=== PATIENT | female | born 1940 | race Caucasian/White ===

== ENCOUNTER 2017-10-07 14:01 | Emergency (ER) | payer MEDICARE ==
[2017-10-07] MEDS ORDERED: TORAdol 30 mg Injection IV ONE (14:36)
[2017-10-07] MEDS ORDERED: MORPHINE SULFATE 4 MG INJ IV ONE (14:36)
--- NOTE | 2017-10-07 14:36 | ERPHSYRPT ---
- History of Present Illness Time Seen by Provider: 10/07/17 14:26 Source: patient, family Exam Limitations: no limitations Physician History: The patient is a 77-year-old female with family complaining of a flareup of her chronic low back pain that began 4 days ago. She has flareups from time to time. She has been lifting a few items and taking care of her disabled . Her pain this morning has been nearly unbearable. She has not slept for 2 nights. The pain is on both sides in her low back radiating down her buttocks. She denies nausea or vomiting. Her past medical history is significant for chronic back pain, hypertension. Timing/Duration: day(s) (4), gradual onset, worse Method of Injury: bending, lifting Quality: sharp, aching Back Pain Location: lumbar spine Back Pain Radiation: buttocks Severity of Pain-Max: severe Severity of Pain-Current: severe Modifying Factors: Improves With: pain medication Associated Symptoms: lower back pain, No urinary incontinence, No loss of bowel control, No nausea, No vomiting Previous symptoms: same symptoms as today Allergies/Adverse Reactions: No Known Drug Allergies Allergy (Verified 10/07/17 14:28) Home Medications: Lisinopril/Hydrochlorothiazide [Lisinopril-Hctz 10-12.5 mg Tab] 1 each PO DAILY 07/09/17 [History] Naproxen 500 mg [Naprosyn 500 MG] 500 mg PO DAILY PRN 07/09/17 [History] Nebivolol HCl [Bystolic] 10 mg PO DAILY 07/09/17 [History] Potassium Chloride 20 Meq [Klor-Con 20 MEQ] 20 meq PO DAILY 07/09/17 [History] - Review of Systems Constitutional: No Fever, No Chills Eyes: No Symptoms Ears, Nose, & Throat: No Symptoms Respiratory: No Cough, No Dyspnea Cardiac: No Chest Pain, No Edema, No Syncope Abdominal/Gastrointestinal: No Abdominal Pain, No Nausea, No Vomiting, No Diarrhea Genitourinary Symptoms: No Dysuria Musculoskeletal: Back Pain Skin: No Rash Neurological: No Dizziness, No Focal Weakness, No Sensory Changes Psychological: No Symptoms Endocrine: No Symptoms Hematologic/Lymphatic: No Symptoms Immunological/Allergic: No Symptoms All Other Systems: Reviewed and Negative - Past Medical History Pertinent Past Medical History: Yes Neurological History: No Pertinent History ENT History: Other Cardiac History: Hypertension Respiratory History: No Pertinent History Endocrine Medical History: No Pertinent History Musculoskeletal History: Osteoarthritis, Other GI Medical History: No Pertinent History History: No Pertinent History Psycho-Social History: No Pertinent History Female Reproductive Disorders: No Pertinent History Other Medical History: fractured tailbone, steroid shot for a buldging disc in the L-spine "years ago". degenerative spondlyosis. R knee scope. blind in left eye - Past Surgical History Past Surgical History: Yes Neuro Surgical History: No Pertinent History Cardiac: No Pertinent History Respiratory: No Pertinent History Gastrointestinal: No Pertinent History Genitourinary: No Pertinent History Musculoskeletal: Orthopedic Surgery, Other Female Surgical History: No Pertinent History Other Surgical History: knee scope, lipomas removed - Social History Drug Use: none - Nursing Vital Signs Nursing Vital Signs: Initial Vital Signs Temperature 98 F 10/07/17 14:12 Pulse Rate 60 10/07/17 14:12 Respiratory Rate 20 10/07/17 14:12 Blood Pressure 170/72 10/07/17 14:12 O2 Sat by Pulse Oximetry 97 10/07/17 14:12 Pain Scale Pain Intensity [Back] 1 Pain Intensity 0 - Physical Exam General Appearance: moderate distress Eye Exam: PERRL/EOMI, eyes nml inspection Ears, Nose, Throat Exam: normal ENT inspection Neck Exam: normal inspection, non-tender, supple, full range of motion, No meningismus, No midline tenderness Respiratory Exam: normal breath sounds, lungs clear, No respiratory distress Cardiovascular Exam: regular rate/rhythm Gastrointestinal Exam: soft, No tenderness, No mass Pelvic Exam: not done Rectal Exam: not done Back Exam: decreased range of motion, muscle spasm (tenderness and spasm in bilateral inferior paraspinous muscles.), No vertebral tenderness Extremity Exam: normal inspection, normal range of motion, No calf tenderness, No pedal edema Neurologic Exam: alert, oriented x 3, cooperative, [employer] dean II-XII nml as tested, normal mood/affect, nml station & gait, sensation nml, No motor deficits Skin Exam: normal color, warm, dry, No rash SpO2 Interpretation: normal SpO2: 97 Oxygen Delivery: Room Air - Radiology Exams L-Spine X-ray Interpretation: Teleradiologist Report, Negative (per DR Swanson, no acute) Ordered Tests: Active Orders 24 hr Category Date Time Status Cold Application STAT Care 10/07/17 14:36 Active IV Insertion STAT Care 10/07/17 14:36 Active LUMBAR LIMITED (2 OR 3 VIEWS) Stat Exams 10/07/17 14:36 Completed Medication Summary Generic Name Dose Route Start Last Admin Trade Name Suyapa PRN Reason Stop Dose Admin Ondansetron HCl 4 mg 10/07/17 17:06 Zofran Odt 4 Mg PO 10/07/17 17:07 STAT ONE Discontinued Medications Generic Name Dose Route Start Last Admin Trade Name Suyapa PRN Reason Stop Dose Admin Dexamethasone Sodium Phosphate 10 mg 10/07/17 14:38 10/07/17 15:40 Decadron 10mg Inj. IV 10/07/17 14:39 10 mg STAT ONE Administration Dexamethasone Sodium Phosphate Confirm 10/07/17 15:39 Decadron 10mg Inj. Administered 10/07/17 15:40 Dose 10 mg .ROUTE .STK-MED ONE Ketorolac Tromethamine 15 mg 10/07/17 14:36 10/07/17 15:40 Toradol 30 Mg Injection IV 10/07/17 14:37 15 mg STAT ONE Administration Ketorolac Tromethamine Confirm 10/07/17 15:39 Toradol 30 Mg Injection Administered 10/07/17 15:40 Dose 30 mg .ROUTE .STK-MED ONE Morphine Sulfate 4 mg 10/07/17 14:36 10/07/17 15:40 Morphine Sulfate 4 Mg Inj IV 10/07/17 14:37 4 mg STAT ONE Administration Morphine Sulfate Confirm 10/07/17 15:39 Morphine Sulfate 4 Mg Inj Administered 10/07/17 15:40 Dose 4 mg .ROUTE .STK-MED ONE - Progress Progress: improved Counseled pt/family regarding: rad results - Departure Time of Disposition: 17:08 Departure Disposition: Home Clinical Impression: Back spasm Condition: Stable Critical Care Time: No Referrals: FRANCIS VINES [Primary Care Provider] - Additional Instructions: You have back pain and back muscle spasms. You were given morphine, Decadron, and Toradol in the ER. You are also given Zofran orally. Take Flexeril 5 mg every 8 hours as needed. Follow-up in one to 2 days. Prescriptions: Ondansetron ODT 4 MG [Zofran Odt 4 mg] 1 tab PO Q6H PRN PRN #10 tab.rapdis PRN Reason: Nausea/Vomiting Cyclobenzaprine HCl [Flexeril] 5 mg PO Q8H PRN PRN #10 tablet PRN Reason: Muscle Spasms
[2017-10-07] MEDS ORDERED: DECADRON 10MG INJ. IV ONE (14:38)
--- NOTE | 2017-10-07 15:28 | XRAY ---
Exam: 3 view lumbar spine series from 10/07/2017. Comparison: Five-view lumbar spine series from 06/11/2017. Indication: Status post injury after carrying groceries per patient, complains of lumbosacral pain. Findings: AP, lateral, and a coned-down lateral film of the lumbosacral junction were obtained. There are 5 [id number] lumbar-type vertebra. I note a slight rotary component of L3 toward the right on the AP film, as well as minimal right lateral subluxation of L3 with respect to L4. This is unchanged. In addition, there is moderate degenerative disc disease at L3-L4 manifested by disc space narrowing, vacuum disc phenomena, and mild anterior lateral vertebral endplate spurring. This is most pronounced on the left side. These findings are unchanged from 06/11/2017. Minimal anterolisthesis of L4 over L5 (about 4.0-4.5 mm) without evidence of obvious spondylolysis is seen. This is described on the prior lumbar spine report, but I believe is better seen on today's exam. There is also mild narrowing of the L4-L5 interspace height with some vacuum disc phenomena indicating mild degenerative disc disease at this level. The L5-S1 interspace level is well-maintained. There appears to be some mild sclerosis overlying the L5-S1 facet joints indicating some hypertrophic degenerative change. Minimal osteoarthritic changes are also seen at L1-L2 and L2-L3. No acute lumbar spine compression fracture or new AP traumatic subluxation is seen. No bone destruction is evident. Mild vacuum phenomena is again seen within both sacroiliac joints. Several stable calcified densities are seen overlying the lower left abdomen representing no change. Atherosclerotic vascular calcification is seen within the abdominal aorta. No aneurysm is seen. Impression: 1. I see no new acute lumbar compression fracture or AP traumatic subluxation. 2. However, there is approximately 4.0-4.5 mm anterior spondylolisthesis of L4 over L5 without evidence of spondylolysis. This was described on the prior report from 06/11/2017 as well, although it is easier to see on today's exam. 3. Moderate degenerative disc disease at L3-L4 with minimal right lateral subluxation of L3 was respect L4 and a slight rotary component of L3 toward the right. These findings are unchanged. 4. I also see findings consistent with mild degenerative disc disease at L4-L5 representing no change. 5. I also suspect minimal degenerative osteoarthritic changes at L1-L2 and L2-L3, as well as mild facet joint arthropathy at L5-S1.
[2017-10-07] MEDS ORDERED: TORAdol 30 mg Injection ONE (15:39)
[2017-10-07] MEDS ORDERED: DECADRON 10MG INJ. ONE (15:39)
[2017-10-07] MEDS ORDERED: MORPHINE SULFATE 4 MG INJ ONE (15:39)
[2017-10-07 17:02] VITALS: BP 156/100; PULSE 60
[2017-10-07] MEDS ORDERED: ZOFRAN ODT 4 MG PO ONE (17:06)
[2017-10-07] MEDS ORDERED: ZOFRAN ODT 4 MG ONE (17:10)
[2017-10-07 17:11] VITALS: O2SAT 97
== END 2017-10-07 18:12 | disposition home or self-care (01) ==
LOC: ED 14:01
DX: M62.830 Muscle spasm of back (principal)
CPT/HCPCS: 36000; 72100; 96374; 96375; 99284; J1100; J1885; J2270; Q0162

== ENCOUNTER 2018-02-27 10:22 | Inpatient (IN) | payer MEDICARE ==
--- NOTE | 2018-02-27 10:53 | ERPHSYRPT ---
- History of Present Illness Time Seen by Provider: 02/27/18 10:53 Source: patient Exam Limitations: no limitations Patient Subjective Stated Complaint: pt here for n/v for about 3 days ago, with chills, constipation. pt started on nuerontin last week, and also has UTI Triage Nursing Assessment: pt alert, reap easy, moaning out, and soft, Physician History: The patient is a 77-year-old female with her daughters complaining of nausea and vomiting for the past 3 or 4 days. She has been nauseated for more than a week since she began taking gabapentin. She has tried to reduce the dose of gabapentin but still has been nauseated. Her has been vomiting for the past 2 or 3 days. He has Alzheimer's and she takes care of him at home. She denies being lightheaded. Her daughters think that she may be dehydrated. There also are concerned that she may have a UTI because 3 days ago or more she was having some discomfort while urinating. She was given a prescription for Bactrim but has not taken all of the because of the stomach upset she has been having. Her past medical history is significant for hypertension, hysterectomy , and back pain. She has been trying to take Zofran without relief. Timing/Duration: day(s) (4), intermittent, gradual onset, worse Severity: severe Modifying Factors: Improves With: medication (zofran without relief) Associated Symptoms: nausea, vomiting, No abdominal pain Allergies/Adverse Reactions: No Known Drug Allergies Allergy (Verified 02/27/18 10:39) Home Medications: Lisinopril/Hydrochlorothiazide [Lisinopril-Hctz 10-12.5 mg Tab] 1 each PO DAILY 07/09/17 [History] Naproxen 500 mg [Naprosyn 500 MG] 500 mg PO DAILY PRN 07/09/17 [History] Nebivolol HCl [Bystolic] 10 mg PO DAILY 07/09/17 [History] Potassium Chloride 20 Meq [Klor-Con 20 MEQ] 20 meq PO DAILY 07/09/17 [History] Hx Tetanus, Diphtheria Vaccination/Date Given: No Hx Influenza Vaccination/Date Given: Yes Hx Pneumococcal Vaccination/Date Given: Yes Immunizations Up to Date: Yes - Review of Systems Constitutional: No Fever, No Chills Eyes: No Symptoms Ears, Nose, & Throat: No Symptoms Respiratory: No Cough, No Dyspnea Cardiac: No Chest Pain, No Edema, No Syncope Abdominal/Gastrointestinal: Nausea, Vomiting, No Abdominal Pain, No Diarrhea Genitourinary Symptoms: Dysuria Musculoskeletal: No Back Pain, No Neck Pain Skin: No Rash Neurological: No Dizziness, No Focal Weakness, No Sensory Changes Psychological: No Symptoms Endocrine: No Symptoms Hematologic/Lymphatic: No Symptoms Immunological/Allergic: No Symptoms All Other Systems: Reviewed and Negative - Past Medical History Pertinent Past Medical History: Yes Neurological History: No Pertinent History ENT History: Other Cardiac History: High Cholesterol, Hypertension Respiratory History: No Pertinent History Endocrine Medical History: No Pertinent History Musculoskeletal History: Arthritis GI Medical History: No Pertinent History History: No Pertinent History Psycho-Social History: No Pertinent History Female Reproductive Disorders: No Pertinent History Other Medical History: fractured tailbone, steroid shot for a buldging disc in the L-spine "years ago". degenerative spondlyosis. R knee scope. blind in left eye - Past Surgical History Past Surgical History: Yes Neuro Surgical History: No Pertinent History Cardiac: No Pertinent History Respiratory: No Pertinent History Gastrointestinal: No Pertinent History Genitourinary: No Pertinent History Musculoskeletal: Orthopedic Surgery, Other Female Surgical History: No Pertinent History Other Surgical History: knee scope, lipomas removed - Social History Smoking Status: Never smoker Exposure to second hand smoke: No Drug Use: none Patient Lives Alone: No - Female History Hx Last Menstrual Period: post Hx Now: No - Nursing Vital Signs Nursing Vital Signs: Initial Vital Signs Temperature 97.6 F 02/27/18 10:34 Pulse Rate 64 02/27/18 10:34 Respiratory Rate 22 02/27/18 10:34 Blood Pressure 200/96 02/27/18 10:34 O2 Sat by Pulse Oximetry 100 02/27/18 10:34 Pain Scale Pain Intensity 0 - Physical Exam General Appearance: moderate distress Eye Exam: PERRL/EOMI, eyes nml inspection Ears, Nose, Throat Exam: dry mucous membranes Neck Exam: normal inspection, non-tender, supple, full range of motion Respiratory Exam: normal breath sounds, lungs clear, No respiratory distress Cardiovascular Exam: regular rate/rhythm, normal heart sounds, normal peripheral pulses Gastrointestinal/Abdomen Exam: soft, normal bowel sounds, No tenderness, No mass Pelvic Exam: not done Rectal Exam: not done Back Exam: normal inspection, normal range of motion, No CVA tenderness, No vertebral tenderness Extremity Exam: normal inspection, normal range of motion, pelvis stable Neurologic Exam: alert, oriented x 3, cooperative, normal mood/affect, nml cerebellar function, nml station & gait, sensation nml, No motor deficits Skin Exam: normal color, warm, dry, No rash Lymphatic Exam: No adenopathy SpO2 Interpretation: normal SpO2: 100 Oxygen Delivery: Room Air Ordered Tests: Active Orders 24 hr Category Date Time Status IV Insertion STAT Care 02/27/18 11:17 Active OBSTR/ACUTE ABDOMEN SERIES Stat Exams 02/27/18 11:17 Taken BMP Stat Lab 02/27/18 11:15 Completed CBC W DIFF Stat Lab 02/27/18 11:15 Completed Lactic Acid Stat Lab 02/27/18 11:26 Completed Lactic Acid Stat Lab 02/27/18 13:50 Completed UA W/RFX UR CULTURE Stat Lab 02/27/18 11:17 Uncollected Medication Summary Discontinued Medications Generic Name Dose Route Start Last Admin Trade Name Freq PRN Reason Stop Dose Admin Sodium Chloride 1,000 mls @ 999 mls/hr 02/27/18 11:17 02/27/18 11:30 Sodium Chloride 0.9% 1000 Ml IV 02/27/18 12:17 999 mls/hr .Q1H1M STA Administration Sodium Chloride Confirm 02/27/18 11:23 Sodium Chloride 0.9% 1000 Ml Administered 02/27/18 11:24 Dose 1,000 mls @ ud .ROUTE .STK-MED ONE Ondansetron HCl 4 mg 02/27/18 14:01 Zofran 4 Mg/2 Ml Vial IV 02/27/18 14:02 STAT ONE Promethazine HCl 25 mg 02/27/18 11:17 02/27/18 11:30 Phenergan 25 Mg Inj IV 02/27/18 11:18 25 mg STAT ONE Administration Promethazine HCl Confirm 02/27/18 11:23 Phenergan 25 Mg Inj Administered 02/27/18 11:24 Dose 25 mg .ROUTE .STK-MED ONE Lab/Rad Data: Laboratory Result Diagrams 02/27/18 11:15 02/27/18 11:15 Laboratory Results 02/27/18 02/27/18 02/27/18 Range/Units 13:50 11:26 11:15 WBC (4.0-10.5) K/mm3 RBC (4.1-5.4) M/mm3 Hgb (12.0-16.0) gm/dl Hct (35-47) % MCV (78-100) fl MCH (26-32) pg MCHC (32-36) g/dl RDW (11.5-14.0) % Plt Count (150-450) K/mm3 MPV (6-9.5) fl Gran % (36.0-66.0) % Eos # (Auto) (0-0.5) Absolute Lymphs (auto) (1.0-4.6) Absolute Monos (auto) (0.0-1.3) Lymphocytes % (24.0-44.0) % Monocytes % (0.0-12.0) % Eosinophils % (0.00-5.0) % Basophils % (0.0-0.4) % Absolute Granulocytes (1.4-6.9) Basophils # (0-0.4) Sodium 119 L* (137-145) mmol/L Potassium 4.2 (3.5-5.1) mmol/L Chloride 85 L (98-107) mmol/L Carbon Dioxide 22 (22-30) mmol/L Anion Gap 16.8 H (5-15) MEQ/L BUN 18 H (7-17) mg/dL Creatinine 1.36 H (0.52-1.04) mg/dL Estimated GFR 39.9 ML/MIN Glucose 140 H (74-106) mg/dL Lactic Acid 1.6 3.1 H (0.4-2.0) Calcium 9.2 (8.4-10.2) mg/dL Slides for Path Review 02/27/18 Range/Units 11:15 WBC 6.0 (4.0-10.5) K/mm3 RBC 4.13 (4.1-5.4) M/mm3 Hgb 13.1 (12.0-16.0) gm/dl Hct 36.3 (35-47) % MCV 87.9 (78-100) fl MCH 31.7 (26-32) pg MCHC 36.1 H (32-36) g/dl RDW 11.2 L (11.5-14.0) % Plt Count 265 (150-450) K/mm3 MPV 10.2 H (6-9.5) fl Gran % 85.8 H (36.0-66.0) % Eos # (Auto) 0 (0-0.5) Absolute Lymphs (auto) 0.42 L (1.0-4.6) Absolute Monos (auto) 0.43 (0.0-1.3) Lymphocytes % 7.0 L (24.0-44.0) % Monocytes % 7.2 (0.0-12.0) % Eosinophils % 0.0 (0.00-5.0) % Basophils % 0.0 (0.0-0.4) % Absolute Granulocytes 5.15 (1.4-6.9) Basophils # 0 (0-0.4) Sodium (137-145) mmol/L Potassium (3.5-5.1) mmol/L Chloride (98-107) mmol/L Carbon Dioxide (22-30) mmol/L Anion Gap (5-15) MEQ/L BUN (7-17) mg/dL Creatinine (0.52-1.04) mg/dL Estimated GFR ML/MIN Glucose (74-106) mg/dL Lactic Acid (0.4-2.0) Calcium (8.4-10.2) mg/dL Slides for Path Review YES - Progress Progress: improved Discussed with : Leo (for Dr Dodge) Will see patient in: hospital (observation) Counseled pt/family regarding: lab results, diagnosis, rad results - Departure Time of Disposition: 14:07 Departure Disposition: Observation (per Dr Bailey for Dr Dodge) Clinical Impression: Vomiting, Hyponatremia Condition: Stable Critical Care Time: No Referrals: FRANCIS DODGE [Primary Care Provider] -
[2018-02-27] MEDS ORDERED: Sodium Chloride 0.9% 1000 ML 1,000 ML IV STA (11:17)
[2018-02-27] MEDS ORDERED: Phenergan 25 MG INJ IV ONE (11:17)
[2018-02-27] MEDS ORDERED: Phenergan 25 MG INJ ONE (11:23)
[2018-02-27] MEDS ORDERED: Sodium Chloride 0.9% 1000 ML 1,000 ML ONE (11:23)
[2018-02-27 11:26] LABS: Basophil (Absolute #) 0 (0-0.4); Eosinophil (Absolute #) 0 (0-0.5); Granulocyte Absolute (ANC) 5.15 (1.4-6.9); Granulocytes % 85.8 % (36.0-66.0); Hematocrit 36.3 % (35-47); Hemoglobin 13.1 gm/dl (12.0-16.0); Lymphocyte (Absolute #) 0.42 (1.0-4.6); Mean Cell Volume 87.9 fl (78-100); Mean Corpuscular Hemoglobin 31.7 pg (26-32); Mean Corpuscular Hgb Concent. 36.1 g/dl (32-36); Mean Platelet Volume 10.2 fl (6-9.5); Monocyte (Absolute #) 0.43 (0.0-1.3); Monocytes % 7.2 % (0.0-12.0); Platelet Count 265 K/mm3 (150-450); Red Blood Count 4.13 M/mm3 (4.1-5.4); Red Cell Distribution Width 11.2 % (11.5-14.0)
[2018-02-27 11:27] LABS: Lactic Acid 3.1 (0.4-2.0)
[2018-02-27 11:41] LABS: Slide Review 1 YES
[2018-02-27 11:53] LABS: ANION GAP 16.8 MEQ/L (5-15); Calcium 9.2 mg/dL (8.4-10.2); Creatinine 1 1.36 mg/dL (0.52-1.04); Potassium 4.2 mmol/L (3.5-5.1)
[2018-02-27] MEDS ORDERED: Zofran 4 MG/2 ML VIAL IV ONE (14:01)
[2018-02-27] MEDS ORDERED: Zofran 4 MG/2 ML VIAL ONE (14:11)
[2018-02-27] MEDS ORDERED: Phenergan 25 MG INJ IM PRN (14:41)
[2018-02-27] MEDS ORDERED: Zofran 4 MG/2 ML VIAL IV PRN ×2 (14:41→19:26)
[2018-02-27] MEDS: Sodium Chloride 0.9% 1000 ML 1,000 ML IV SCH (14:55)
[2018-02-27] MEDS ORDERED: Phenergan 25 MG INJ IV PRN ×2 (15:42→19:26)
[2018-02-27] MEDS: APRESOLINE 20 MG/ML INJ IV PRN (16:09)
[2018-02-27 18:01] LABS: Appearance CLEAR (CLEAR); Bilirubin NEGATIVE (NEGATIVE); Blood NEGATIVE Ery/ul (0-5); Glucose 50 mg/dL (NEGATIVE); Ketones MODERATE-40 (NEGATIVE); Leukocyte Esterase NEGATIVE (NEGATIVE); Nitrite NEGATIVE (NEGATIVE); Protein,Urine Dip NEGATIVE (Negative); Urobilinogen NORMAL mg/dL (0-1)
[2018-02-27 18:02] LABS: Epithelial Cells RARE /HPF (FEW)
[2018-02-27] MEDS ORDERED: FEVERALL 650 MG PR PRN (18:04)
[2018-02-27] MEDS ORDERED: FEVERALL 325 MG ONE (18:05)
--- NOTE | 2018-02-27 20:01 | XRAY ---
Indication: Nausea and vomiting. Comparison: Chest exam May 06, 2015. 2 views of the abdomen demonstrates mild diffuse scattered colonic fecal debris without obstruction. A few left mid abdomen calcified granulomas. Remaining solid organs are unremarkable. Osseous structures intact with mild osteopenia, moderate multilevel lumbar degenerative spondylosis, and mild dextroscoliosis. Single PA chest again demonstrates normal heart and lungs with incidental left base calcified granuloma. Bony thorax intact again with mild osteopenia and left axillary calcified node. Impression: 1. Mild fecal stasis without obstruction. 2. Stable nonacute 1V chest. 3. Again evidence for old granulomatous disease.
[2018-02-27] MEDS: Zestril 10 MG PO SCH (23:46)
[2018-02-28] MEDS: APRESOLINE 20 MG/ML INJ IV PRN ×3 (01:04→13:37)
[2018-02-28] MEDS: Sodium Chloride 0.9% 1000 ML 1,000 ML IV SCH ×3 (01:44→18:35)
[2018-02-28] MEDS ORDERED: APRESOLINE 20 MG/ML INJ ONE (05:04)
[2018-02-28 05:38] LABS: BASOPHIL % 0.1 % (0.0-0.4); Basophil (Absolute #) 0.01 (0-0.4); Eosinophil (Absolute #) 0 (0-0.5); Granulocyte Absolute (ANC) 9.15 (1.4-6.9); Granulocytes % 87.4 % (36.0-66.0); Hematocrit 34.6 % (35-47); Hemoglobin 12.1 gm/dl (12.0-16.0); Lymphocyte (Absolute #) 0.62 (1.0-4.6); Lymphocytes % 5.9 % (24.0-44.0); Mean Cell Volume 89.2 fl (78-100); Monocyte (Absolute #) 0.69 (0.0-1.3); Monocytes % 6.6 % (0.0-12.0); Platelet Count 264 K/mm3 (150-450); Red Blood Count 3.88 M/mm3 (4.1-5.4); Red Cell Distribution Width 11.5 % (11.5-14.0); White Blood Count 10.5 K/mm3 (4.0-10.5)
[2018-02-28 05:39] LABS: Mean Corpuscular Hemoglobin 31.1 pg (26-32)
[2018-02-28 05:57] LABS: ANION GAP 12.2 MEQ/L (5-15); Calcium 8.7 mg/dL (8.4-10.2); Creatinine 1 1.04 mg/dL (0.52-1.04); Potassium 3.2 mmol/L (3.5-5.1)
[2018-02-28] MEDS ORDERED: NON-FORMULARY ITEM (Cyclobenzaprine Hcl [Flexeril] 5 MG) PO PRN (06:53)
[2018-02-28] MEDS ORDERED: Cyclobenzaprine 10 MG PO PRN (07:24)
--- NOTE | 2018-02-28 08:43 | XRAY ---
Indication: Nausea and vomiting 1 week. Multiple contiguous axial images obtained through the abdomen and pelvis without contrast as ordered. Comparison: None Lung bases demonstrates left lower lobe and left infrahilar calcified granulomas. No infiltrate or effusion. Heart is not enlarged. Small hiatal hernia. Noncontrasted stomach and bowel loops appear nonobstructed. Mild diffuse scattered colonic fecal debris throughout.. Minimal sigmoid diverticulosis. Previous appendectomy and hysterectomy. A few tiny calcified granulomas of the spleen and just anterior to the left iliopsoas muscle. 1 cm left mid renal cortical cyst. No free fluid/air. Remaining liver, gallbladder, pancreas, spleen, adrenal glands, kidneys, ureters, and bladder appear unremarkable for noncontrast exam. Mild aortoiliac calcifications without AAA. Osseous structures intact with moderate/advanced L3-L5 degenerative disc disease including vacuum disc phenomena. No ventral or inguinal hernias. Impression: 1. Mild fecal stasis without obstruction and minimal sigmoid diverticulosis. 2. Left renal cyst, hiatal hernia, and evidence for old granulomatous disease. 3. Remaining CT abdomen/pelvis without contrast exam is negative. Comment: Preliminary interpretation was made by [facility]. No discrepancy. CT DI 20.12
[2018-02-28] MEDS ORDERED: NON-FORMULARY ITEM (Nebivolol Hcl [Bystolic] 10 MG) PO SCH (10:00)
[2018-02-28] MEDS ORDERED: NON-FORMULARY ITEM (Potassium Chloride 20 Meq [Klor-Con 20 Meq] 20 MEQ) PO SCH (10:00)
[2018-02-28 10:01] LABS: INFLUENZA A NEGATIVE (NEGATIVE); INFLUENZA B NEGATIVE (NEGATIVE); RESPIRATORY SYNCTIAL VIRUS NEGATIVE (Negative)
[2018-02-28] MEDS: Zofran 4 MG/2 ML VIAL IV PRN ×3 (10:24→18:26)
[2018-02-28] MEDS: Levofloxacin 500MG/100ML D5W 500 MG/100 ML BAG IV SCH (10:27)
[2018-02-28] MEDS: Klor Con 10 MEQ PO SCH (10:57)
[2018-02-28] MEDS: Zestril 10 MG PO SCH ×2 (10:58→21:06)
[2018-02-28] MEDS: Bystolic 5 MG PO SCH (10:58)
[2018-02-28] MEDS ORDERED: TYLENOL 325 MG ONE (13:35)
[2018-02-28] MEDS: TYLENOL 325 MG PO PRN (13:40)
[2018-02-28 22:23] LABS: INFLUENZA A NEGATIVE (NEGATIVE); INFLUENZA B NEGATIVE (NEGATIVE); RESPIRATORY SYNCTIAL VIRUS NEGATIVE (Negative)
[2018-03-01] MEDS: Sodium Chloride 0.9% 1000 ML 1,000 ML IV SCH ×2 (00:51→07:40)
[2018-03-01] MEDS: APRESOLINE 20 MG/ML INJ IV PRN ×2 (04:13→23:42)
[2018-03-01 06:10] LABS: Hematocrit 32.3 % (35-47); Hemoglobin 11.1 gm/dl (12.0-16.0); Mean Cell Volume 91.5 fl (78-100); Mean Corpuscular Hemoglobin 31.4 pg (26-32); Mean Corpuscular Hgb Concent. 34.4 g/dl (32-36); Mean Platelet Volume 9.8 fl (6-9.5); Platelet Count 235 K/mm3 (150-450); Red Blood Count 3.53 M/mm3 (4.1-5.4); Red Cell Distribution Width 11.9 % (11.5-14.0); White Blood Count 8.7 K/mm3 (4.0-10.5)
[2018-03-01 06:25] LABS: ANION GAP 11.2 MEQ/L (5-15); BLOOD UREA NITROGEN 13 mg/dL (7-17); CHLORIDE 102 mmol/L (98-107); Calcium 8.3 mg/dL (8.4-10.2); Carbon Dioxide 21 mmol/L (22-30); Creatinine 1 0.93 mg/dL (0.52-1.04); Glucose 86 mg/dL (74-106); Potassium 3.3 mmol/L (3.5-5.1); SODIUM 130 mmol/L (137-145)
[2018-03-01] MEDS: Zofran 4 MG/2 ML VIAL IV PRN ×3 (07:41→21:34)
[2018-03-01] MEDS: DEXTROSE 5% -NACL 0.9% 1000 ML + KCl 20 MEQ 1,000 ML IV SCH ×2 (08:07→18:38)
[2018-03-01 09:06] LABS: BILIRUBIN,TOTAL 0.4 mg/dL (0.2-1.3); Direct Bilirubin 0.2 mg/dL (0.0-0.4); Total Protein 5.4 g/dL (6.3-8.2)
[2018-03-01] MEDS: Bystolic 5 MG PO SCH (09:59)
[2018-03-01] MEDS: Levofloxacin 500MG/100ML D5W 500 MG/100 ML BAG IV SCH (09:59)
[2018-03-01] MEDS: Klor Con 10 MEQ PO SCH (09:59)
[2018-03-01] MEDS: Zestril 10 MG PO SCH ×2 (09:59→21:31)
--- NOTE | 2018-03-01 10:40 | HP ---
CHIEF COMPLAINT: Nausea and vomiting. HISTORY OF PRESENT ILLNESS: This is a 77 year-old white female who presented to the emergency room. She had been having problems with nausea and vomiting. She also developed some chills. She had been having problems with constipation previously. She was also seen in the office three days prior to admission and diagnosed with possible urinary tract infection and began on Bactrim orally. The patient reports that she had become nauseated and started vomiting and she was unable to keep anything down. She has recently had problems with her spine with radiculopathy kind of complaint and had been started on gabapentin. This has been quite severe. The patient has been complaining vehemently about her back pain. She was also given a prescription for Moyers recently to help with her back pain while she is pending further evaluation and management. PAST MEDICAL/SURGICAL HISTORY: Otherwise significant for hypertension. She has had a hysterectomy. HOME MEDICATIONS: Otherwise currently include lisinopril-hydrochlorothiazide 10-12.5 mg daily. She apparently takes naproxen 500 mg on PRN basis. She is on Bystolic 10 mg daily and potassium 20 mEq daily. ALLERGIES: NKDA. PHYSICAL EXAMINATION: Her vital signs on admission showed temperature to be 97.6F, pulse 64, respiratory rate 22 and blood pressure 200/96. O2 saturation 100%. HEENT: Normocephalic, atraumatic. Pupils equal round reactive to light. Extraocular movements intact. Oropharynx is pink and moist. NECK: Supple without lymphadenopathy, thyromegaly or JVD. CHEST: Clear to auscultation. HEART: Regular rate and rhythm without murmurs, rubs or gallops. ABDOMEN: Soft, minimally tender. No palpable masses are felt. EXTREMITIES: Without clubbing, cyanosis or edema. NEUROLOGIC: The patient is alert and oriented x3. She does have the appearance of being depressed. LAB DATA AND TESTS: Her laboratory studies so far shows CT scan showing mild fecal stasis, minimal sigmoid diverticulosis. The examination otherwise was reported as unremarkable otherwise for noncontrast examination. She had lactic acid level measured at 3.1 in the emergency room. Her white blood cell count was 6,000, hemoglobin 13.1, PLT count 265,000. After fluid hydration her lactic acid fell to 1.6. Initial glucose was 140, BUN 18, creatinine 1.36. Sodium was low at 119. Potassium was 4.2. UA at this point showed moderate ketones but otherwise was negative. We did have a urine culture pending from 02/23/2018 which did turn operator positive for Escherichia coli which was sensitive to all the antibiotics tested. ASSESSMENT: A patient with nausea and vomiting. She has been admitted for IV fluid hydration and antiemetic medications. We will change her antibiotic to Levaquin IV since she is unable to keep anything down presently. We will monitor her hypertension and as soon as she is able to keep her medicines down we will reinstitute her medications p.o.
[2018-03-02] MEDS: DEXTROSE 5% -NACL 0.9% 1000 ML + KCl 20 MEQ 1,000 ML IV SCH ×2 (01:22→07:40)
[2018-03-02] MEDS: APRESOLINE 20 MG/ML INJ IV PRN (05:48)
[2018-03-02 06:34] LABS: BASOPHIL % 0.1 % (0.0-0.4); Basophil (Absolute #) 0.01 (0-0.4); Eosinophil % 0.1 % (0.00-5.0); Eosinophil (Absolute #) 0.01 (0-0.5); Granulocyte Absolute (ANC) 7.42 (1.4-6.9); Granulocytes % 83.6 % (36.0-66.0); Hemoglobin 10.5 gm/dl (12.0-16.0); Lymphocyte (Absolute #) 0.74 (1.0-4.6); Lymphocytes % 8.3 % (24.0-44.0); Mean Cell Volume 93.1 fl (78-100); Mean Corpuscular Hemoglobin 31.5 pg (26-32); Mean Corpuscular Hgb Concent. 33.9 g/dl (32-36); Mean Platelet Volume 10.1 fl (6-9.5); Monocytes % 7.9 % (0.0-12.0); Platelet Count 209 K/mm3 (150-450); Red Blood Count 3.33 M/mm3 (4.1-5.4); Red Cell Distribution Width 11.8 % (11.5-14.0); White Blood Count 8.9 K/mm3 (4.0-10.5)
[2018-03-02 06:42] LABS: ALBUMIN 2.7 g/dL (3.5-5.0); ALKALINE PHOSPHATASE 48 U/L (38-126); ANION GAP 8.1 MEQ/L (5-15); BLOOD UREA NITROGEN 9 mg/dL (7-17); CHLORIDE 106 mmol/L (98-107); Calcium 8.2 mg/dL (8.4-10.2); Carbon Dioxide 21 mmol/L (22-30); Creatinine 1 0.86 mg/dL (0.52-1.04); Glucose 142 mg/dL (74-106); SGOT/AST 15 U/L (14-36); SGPT/ALT 14 U/L (0-35); SODIUM 131 mmol/L (137-145); Total Protein 4.9 g/dL (6.3-8.2)
[2018-03-02] MEDS: Zofran 4 MG/2 ML VIAL IV PRN ×2 (07:38→11:49)
[2018-03-02] MEDS: Levofloxacin 500MG/100ML D5W 500 MG/100 ML BAG IV SCH ×2 (07:41→08:08)
[2018-03-02] MEDS: Zestril 10 MG PO SCH ×2 (08:09→21:45)
[2018-03-02] MEDS: Klor Con 10 MEQ PO SCH (08:09)
[2018-03-02] MEDS: Bystolic 5 MG PO SCH ×2 (08:09→21:46)
[2018-03-02] MEDS: TYLENOL 325 MG PO PRN (08:12)
[2018-03-02] MEDS ORDERED: Lasix 40 MG/4 ML IV ONE (08:53)
[2018-03-02] MEDS ORDERED: D5W/0.45NS W/ 20mEq KCl 1000 ML 1,000 ML IV SCH (09:00)
--- NOTE | 2018-03-02 09:58 | XRAY ---
Indication: Nausea and vomiting. Comparison: February 27, 2018. KUB again nonacute and nonobstructed with left midabdomen calcified granulomas. 2 new pelvic undigested medication/pills. Little to no fecal debris today. Solid organs unremarkable. Osseous structures intact again with mild osteopenia, multilevel lumbar degenerative spondylosis, and minimal scoliosis. Impression: Negative KUB again with incidental findings.
[2018-03-02] MEDS: PROTONIX 40 MG IV IV SCH (10:43)
--- NOTE | 2018-03-02 10:52 | XRAY ---
Indication: Nausea and vomiting. Multiple contiguous axial images obtained through the head prior to and following 100 cc Isovue 370 contrast. Comparison: None Ventriculosulcal pattern appears symmetric. No acute intracranial hemorrhage, abnormal extra-axial fluid collection, or mass effect. Postcontrast images are negative for abnormal enhancing intra or extra-axial mass. Fourth ventricle is midline without hydrocephalus. Zhu-white matter differentiation preserved. Bony calvarium intact. Visualized paranasal sinuses and mastoid air cells essentially clear. Impression: Negative CT head with and without contrast exam. CT DI 69.52
--- NOTE | 2018-03-02 14:30 | XRAY ---
Indication: custodial placement. Comparison: February 27, 2018. Single AP chest remains clear again with incidental left base calcified granuloma. Heart and mediastinal structures within normal limits. Bony thorax intact again with mild osteopenia and degenerative changes. Impression: Stable nonacute chest with chronic features.
[2018-03-02] MEDS ORDERED: Sodium Chloride 0.9% 1000 ML 1,000 ML IV SCH (21:15)
[2018-03-02 22:45] LABS: Appearance CLEAR (CLEAR); Bilirubin NEGATIVE (NEGATIVE); Blood NEGATIVE Ery/ul (0-5); Glucose NEGATIVE (NEGATIVE); Ketones NEGATIVE (NEGATIVE); Leukocyte Esterase NEGATIVE (NEGATIVE); Nitrite NEGATIVE (NEGATIVE); Protein,Urine Dip NEGATIVE (Negative); Specific Gravity 1.005 (1.005-1.025); Urobilinogen NORMAL mg/dL (0-1)
[2018-03-03 06:26] LABS: ALBUMIN 2.9 g/dL (3.5-5.0); ANION GAP 8.9 MEQ/L (5-15); BILIRUBIN,TOTAL 0.4 mg/dL (0.2-1.3); Calcium 8.2 mg/dL (8.4-10.2); Creatinine 1 0.97 mg/dL (0.52-1.04); Total Protein 5.2 g/dL (6.3-8.2)
[2018-03-03 06:29] LABS: BASOPHIL % 0.1 % (0.0-0.4); Basophil (Absolute #) 0.01 (0-0.4); Eosinophil % 0.7 % (0.00-5.0); Eosinophil (Absolute #) 0.05 (0-0.5); Granulocyte Absolute (ANC) 4.92 (1.4-6.9); Granulocytes % 73.6 % (36.0-66.0); Hematocrit 30.3 % (35-47); Hemoglobin 10.7 gm/dl (12.0-16.0); Lymphocyte (Absolute #) 1.07 (1.0-4.6); Mean Cell Volume 91.5 fl (78-100); Mean Corpuscular Hemoglobin 32.3 pg (26-32); Mean Corpuscular Hgb Concent. 35.3 g/dl (32-36); Monocyte (Absolute #) 0.64 (0.0-1.3); Monocytes % 9.6 % (0.0-12.0); Platelet Count 181 K/mm3 (150-450); Red Blood Count 3.31 M/mm3 (4.1-5.4); Red Cell Distribution Width 11.7 % (11.5-14.0); White Blood Count 6.7 K/mm3 (4.0-10.5)
[2018-03-03 06:58] LABS: TSH, 3RD Generation 2.84 mIU/L (0.47-4.68)
[2018-03-03 07:33] LABS: Folate (Folic Acid) 12.7 ng/mL (2.76 - >20)
--- NOTE | 2018-03-03 08:43 | CONS ---
CONSULT DATE: 03/02/2018 REASON FOR CONSULT: Hyponatremia. HISTORY: The patient is a 77 year-old lady who presented to the emergency room with complaints of nausea, vomiting and some chills a few days prior. She was recently diagnosed to have urinary tract infection and was prescribed Bactrim. She had become nauseated and started vomiting unable to keep anything down. Recent problems at this point radiculopathy and had been started on gabapentin. The pain was quite severe. She also had been on Bentley. She also takes some NSAID's every day. Since admission she has received some IV half normal saline fluids. Her sodium initially was 119 and subsequently this was corrected. It got up to 131 over the last few days and continues to be in the low 70's so nephrology was consulted. REVIEW OF SYSTEMS: Complains of nausea, vomiting, poor appetite, occasional diarrhea. No fever. Denies any fever, chest pain or abdominal pain. All other systems were reviewed and negative except as stated above. PAST MEDICAL HISTORY: Hypertension, osteoarthritis, recent urinary tract infection. PAST SURGICAL HISTORY: Hysterectomy. MEDICATIONS: Home medications and medicines in the hospital were reviewed per the medication reconciliation sheet. Home medicine list include lisinopril/hydrochlorothiazide, naproxen, Bystolic. Medications all of which were reviewed in the medication reconciliation sheet. ALLERGIES: NKDA. SOCIAL HISTORY: She denies any tobacco, alcohol or substance abuse. and lives with her . FAMILY HISTORY: She denies any history of kidney disease in the family. PHYSICAL EXAMINATION: The patient is awake, alert, oriented, not in any acute distress. VITAL SIGNS: Temperature 97.9F, pulse rate 86, respiratory rate 18, blood pressure 112/50. Saturating 95% on room air. HEENT: Head atraumatic, normocephalic. Eyes nonicteric, positive pallor. ENT mucosa moist. NECK: No JVD. Trachea midline. CHEST: Clear to auscultation bilaterally. No rales. No respiratory distress. CVS: Appears regular. EXTREMITIES: No peripheral edema bilateral. ABDOMEN: Soft, nontender, bowel sounds positive. No palpable edema. NEUROLOGIC: Awake, alert, oriented x3. Following commands and answering all questions appropriately. PSYCHIATRIC: Appropriate mood and affect. SKIN: Warm and dry. LAB DATA AND TESTS: On 02/27/2018 labs showed sodium 119, on 02/28/2018 came up to 126, on 03/01/2018 increased up to 130 and today it is 131. Sodium today is 131, potassium 4.0, chloride 106, CO2 21, BUN 9, creatinine 0.86. Hemoglobin 10.5. Head CT negative. KUB negative. CT abdomen and pelvis shows mild fecal stasis, left renal cyst, hiatal hernia. ASSESSMENT AND PLAN: This is a 77 year-old lady with medical problems: 1) Hyponatremia. Likely secondary to a combination of hydrochlorothiazide, naproxen and Bactrim. I recommend stopping hydrochlorothiazide, stopping and avoiding naproxen and NSAID's and avoiding Bactrim antibiotic. 2) Mild chronic kidney disease: Urine osmolality. I will change IV fluids from half normal to normal saline. Her sodium correction has been appropriate. I will watch sodium levels closely and check TSH, serum cortisone levels, check urine sodium, urine osmolality and monitor sodium level closely. 3) Hypertension: I recommend avoiding hydrochlorothiazide and using alternative to control blood pressure including lisinopril and Bystolic is okay. I will monitor blood pressure closely. I will restart her Bystolic and monitor closely. 4) History of recent urinary tract infection: I will check UA, urine electrophoresis, urine culture to see if she needs any further antibiotics. 5) Nausea and vomiting. Management per primary team. 6) Back pain and osteoarthritis. I recommend avoiding NSAID's. 7) Anemia. Will check iron saturation, B12 and folate level to monitor cause of her anemia and monitor hemoglobin closely. Thank you for this consultation on this patient. Please do not hesitate to contact me if there are any questions.
--- NOTE | 2018-03-03 08:44 | XRAY ---
Indication: Nausea and vomiting. Two-dimensional gallbladder sonogram performed. Comparison: None Gallbladder partially contracted and may reasonably explain wall thickness of 3.6 mm. No gallstones, pericholecystic fluid, or ascites. Common bile duct measures 3.9 mm. No intrahepatic biliary distention. Remaining lesion is portions of the liver, pancreas, and right kidney appear sonographically unremarkable. Right kidney measures 9.5 cm in length. Impression: Gallbladder wall thickening presumed from partial contracted gallbladder. Negative for cholelithiasis or acute cholecystitis.
[2018-03-03] MEDS: PROTONIX 40 MG IV IV SCH (10:01)
[2018-03-03] MEDS: Bystolic 5 MG PO SCH ×2 (10:01→21:09)
[2018-03-03] MEDS: Klor Con 10 MEQ PO SCH (10:02)
[2018-03-03] MEDS: Zestril 10 MG PO SCH ×2 (10:02→21:09)
[2018-03-03] MEDS: Levofloxacin 500MG/100ML D5W 500 MG/100 ML BAG IV SCH ×2 (11:00→11:05)
[2018-03-04] MEDS: TYLENOL 325 MG PO PRN (05:09)
[2018-03-04 05:50] LABS: ALBUMIN 3.1 g/dL (3.5-5.0); ALKALINE PHOSPHATASE 55 U/L (38-126); ANION GAP 9.9 MEQ/L (5-15); BLOOD UREA NITROGEN 7 mg/dL (7-17); CHLORIDE 100 mmol/L (98-107); Calcium 8.5 mg/dL (8.4-10.2); Carbon Dioxide 25 mmol/L (22-30); Creatinine 1 0.88 mg/dL (0.52-1.04); Glucose 85 mg/dL (74-106); Potassium 3.8 mmol/L (3.5-5.1); SGOT/AST 16 U/L (14-36); SGPT/ALT 15 U/L (0-35); SODIUM 131 mmol/L (137-145); Total Protein 5.5 g/dL (6.3-8.2)
[2018-03-04] MEDS: PROTONIX 40 MG IV IV SCH (09:38)
[2018-03-04] MEDS: Klor Con 10 MEQ PO SCH (09:38)
[2018-03-04] MEDS: Bystolic 5 MG PO SCH (09:38)
[2018-03-04] MEDS: Levofloxacin 500MG/100ML D5W 500 MG/100 ML BAG IV SCH (09:38)
[2018-03-04] MEDS: Zestril 10 MG PO SCH (09:38)
--- NOTE | 2018-03-04 10:26 | DS ---
DISCHARGE DIAGNOSES: 1) HYPONATREMIA. 2) NAUSEA AND VOMITING. 3) DEPRESSION. CONSULTANTS: Dr. Yeh from nephrology and [facility] for psychiatric tele-mental exam. HOSPITAL COURSE: The patient is a 77 year-old white female who takes care of her Alzheimer's at home. He has recently gotten bad enough that he needed to be admitted to a local facility. The patient became ill after this with becoming upset and having issues with vomiting. She appeared to be quite depressed on her initial evaluation. She would lay in bed and not wake up to talk to me despite trying to get her interact. Over the first couple of days it was very minimal interaction. We obtained a tele-mental consult which apparently did not agree with the patient's depression but this is quite obvious to me that she is depressed. The family agreed with this as well. She has had a history of depression as well. She is not however suicidal but I am sure this has a lot to do with the patient's problems with her oral intake. The patient's evaluation has included a CT scan of the brain. She has had a CT scan of the abdomen and pelvis as well as a gallbladder ultrasound all essentially unrevealing. The patient has received IV fluid hydration and initially had urine culture performed because she had been seen in the office a couple of days prior to admission and this did grow bacteria which was sensitive to Bactrim. However, the patient was apparently not tolerating these medications. She was placed on IV Levaquin for treatment of urinary tract infection, given IV fluids. Over the next couple of days she received antiemetic of Phenergan and Zofran with minimal relief. However by 03/03/2018, the patient's attitude seemed to turn around and she was actually more conversant, to be more of her normal self. She was in fact even smiling and joking a little bit at this time. The patient has however been unable to get around without assist of nursing for ambulation. We are planning to send her to a rehab, to the same facility her is in for occupational and physical therapy. By the morning of 03/04/2018, the patient was felt to be ready for discharge home and she was finally able to take some green beans and mashed potatoes the night before and keep them down. The patient's hyponatremia resolved with saline infusions. Her labs on the morning of discharge showed glucose to be 85, BUN 7, creatinine 0.88. Her sodium was still somewhat low at 131, potassium 3.8. Liver enzymes were normal as was her bilirubin level. We did repeat a urine culture which is now pending after treatment with antibiotics. She did have a mild anemia with her hemoglobin being 10.7. Her white count was 6,700. Her PLT count was 181,000. She did receive an iron infusion as per Dr. Yeh's instructions and again now appears to be ready for discharge from the acute care setting. She will be transferred to a local rehab facility for further strengthening and ambulation until she is ready to be returned home.
[2018-03-04 12:00] VITALS: BP 172/68; PULSE 64; O2SAT 98
== END 2018-03-04 11:50 | DRG 315 ==
LOC: ED 10:22 → MED SURG 14:39 → OBSVTOIN 02-28 11:38
PROVIDERS: ADMIT Family Medicine; ATTEND Family Medicine
DX: I95.9 Hypotension, unspecified (principal); R11.2 Nausea with vomiting, unspecified; N39.0 Urinary tract infection, site not specified; F32.9 Major depressive disorder, single episode, unspecified; D64.9 Anemia, unspecified; M54.10 Radiculopathy, site unspecified; E87.1 Hypo-osmolality and hyponatremia; B96.20 Unspecified Escherichia coli [E. coli] as the cause of diseases classified elsewhere; K57.30 Diverticulosis of large intestine without perforation or abscess without bleeding; E78.00 Pure hypercholesterolemia, unspecified; I12.9 Hypertensive chronic kidney disease with stage 1 through stage 4 chronic kidney disease, or unspecified chronic kidney disease; N18.2 Chronic kidney disease, stage 2 (mild); I10 Essential (primary) hypertension; M19.90 Unspecified osteoarthritis, unspecified site; Z79.899 Other long term (current) drug therapy; G30.9 Alzheimer's disease, unspecified; F02.80 Dementia in other diseases classified elsewhere, unspecified severity, without behavioral disturbance, psychotic disturbance, mood disturbance, and anxiety
CPT/HCPCS: 36000; 36415; 70470; 71045; 74018; 74022; 74176; 76705; 80048; 80053; 80076; 81000; 81002; 82150; 82533; 82607; 82728; 82746; 83540; 83605; 83690; 83735; 83935; 84300; 84443; 85025; 85027; 87086; 87631; 90791; 93268; 96360; 96361; 96374; 96375; 99285; J0360; J1940; J1956; J2405; J2550; Q3014; A9270-GY; G0378

== ENCOUNTER 2018-05-25 09:16 | Day surgery (SDC) | payer MEDICARE ==
[2018-05-25] MEDS ORDERED: Depo-Medrol 40 MG/ML IM ONE (09:17)
[2018-05-25] MEDS ORDERED: Sodium Chloride 0.9(Preservative Free) 10 ML IJ ONE (09:17)
[2018-05-25] MEDS ORDERED: Xylocaine 1% Vial 30 ML PF IJ ONE (09:17)
[2018-05-25] MEDS ORDERED: DIPRIVAN 200 MG/20 ML IV ONE (09:17)
[2018-05-25] MEDS ORDERED: Lactated Ringers 1,000 ML IV ONE (10:53)
--- NOTE | 2018-05-25 13:08 | XRAY ---
Indication: SHIREEN. Intraoperative fluoroscopy was provided for 18 seconds. 3 digital spot images submitted for interpretation demonstrates single posterior spinal needle tip projecting midline and posterior to the lumbosacral junction level. Correlate with intraoperative findings/report.
--- NOTE | 2018-05-25 14:45 | XRAY ---
18 seconds fluoroscopy time in surgery for SHIREEN.
== END 2018-05-25 10:30 | disposition home or self-care (01) ==
LOC: SDC-PAIN 09:16
PROVIDERS: ATTEND Psychiatry & Neurology Pain Medicine
DX: M54.16 Radiculopathy, lumbar region (principal)
CPT/HCPCS: 72100; 76000; J1030; J2001; J2704

== ENCOUNTER 2018-07-01 04:26 | Emergency (ER) | payer MEDICARE ==
--- NOTE | 2018-07-01 04:38 | ERPHSYRPT ---
- History of Present Illness Time Seen by Provider: 07/01/18 04:30 Historian: patient, EMS Exam Limitations: no limitations Physician History: 78 y/o white female presents with central substernal cp that began suddenly approx 0245 this am and is sharp, radiating straight through to back. pain woke pt up from sleep. no cardiac hx, only h/o htn. pt states pain made her vomit x1. ems could not obtain iv access. ems provided 4 baby asa. no ntg. pt arrives with 1/10 cp. Timing/Duration: today Activities at Onset: sleep Quality: sharpness, stabbing Location: substernal, central Chest Pain Radiation: back Severity of Pain-Max: moderate Severity of Pain-Current: mild (08/18) Modifying Factors: Improves With: aspirin. Worsens With: morphine, movement, nitroglycerin, oxygen Associated Symptoms: nausea, vomiting (x1), No palpitations, No abdominal pain, No hurts to breathe, No weakness, No syncope, No dizziness Prior Chest Pain/Cardiac Workup: no prior chest pain, no prior cardiac workup Nitro Today/Relief: no nitro taken today Aspirin Treatment Today: 81 mg x 4, provided by EMS Allergies/Adverse Reactions: No Known Drug Allergies Allergy (Verified 07/01/18 04:51) Home Medications: Lisinopril 10 mg [Zestril 10 MG] 10 mg PO DAILY 07/01/18 [History] Nebivolol HCl 5 MG [Bystolic 5 MG] 10 mg PO DAILY 07/01/18 [History] Potassium Chloride 10 Meq Tab* [Klor Con 10 MEQ] 20 meq PO DAILY 07/01/18 [ History] Hx Tetanus, Diphtheria Vaccination/Date Given: No Hx Influenza Vaccination/Date Given: Yes Hx Pneumococcal Vaccination/Date Given: Yes - Review of Systems Constitutional: No Symptoms, No Fever Eyes: No Symptoms Ears, Nose, & Throat: No Symptoms Respiratory: No Symptoms, No Cough, No Dyspnea, No Stridor, No Wheezing Cardiac: Chest Pain, Other (intermittent bradycardia) Abdominal/Gastrointestinal: No Symptoms Genitourinary Symptoms: No Symptoms Musculoskeletal: No Symptoms Skin: No Symptoms Neurological: No Symptoms Psychological: No Symptoms Endocrine: No Symptoms Hematologic/Lymphatic: No Symptoms Immunological/Allergic: No Symptoms All Other Systems: Reviewed and Negative - Past Medical History Pertinent Past Medical History: Yes Neurological History: No Pertinent History ENT History: Other Cardiac History: High Cholesterol, Hypertension Respiratory History: No Pertinent History Endocrine Medical History: No Pertinent History Musculoskeletal History: Arthritis GI Medical History: No Pertinent History History: No Pertinent History Psycho-Social History: No Pertinent History Female Reproductive Disorders: No Pertinent History Other Medical History: fractured tailbone, steroid shot for a buldging disc in the L-spine "years ago". degenerative spondlyosis. R knee scope. blind in left eye - Past Surgical History Past Surgical History: Yes Neuro Surgical History: No Pertinent History Cardiac: No Pertinent History Respiratory: No Pertinent History Gastrointestinal: No Pertinent History Genitourinary: No Pertinent History Musculoskeletal: Orthopedic Surgery, Other Female Surgical History: No Pertinent History Other Surgical History: knee scope, lipomas removed - Social History Smoking Status: Never smoker Exposure to second hand smoke: No Drug Use: none Patient Lives Alone: No - Nursing Vital Signs Nursing Vital Signs: Initial Vital Signs Pulse Rate 47 L 07/01/18 04:27 Respiratory Rate 23 07/01/18 04:27 Blood Pressure 117/53 07/01/18 04:27 O2 Sat by Pulse Oximetry 100 07/01/18 04:27 Pain Scale Pain Intensity 0 - Physical Exam General Appearance: mild distress, alert, anxiety Eye Exam: PERRL/EOMI, eyes nml inspection Ears, Nose, Throat Exam: normal ENT inspection, TMs normal, moist mucous membranes Neck Exam: normal inspection, non-tender, supple, full range of motion Respiratory Exam: normal breath sounds, chest tenderness, lungs clear, airway intact, No respiratory distress, No accessory muscle use, No rhonchi, No wheezing, No stridor Cardiovascular Exam: regular rate/rhythm, normal heart sounds, normal peripheral pulses Gastrointestinal/Abdomen Exam: soft, normal bowel sounds, No tenderness, No guarding, No rebound Pelvic Exam: not done Rectal Exam: not done Back Exam: normal inspection, normal range of motion, No CVA tenderness, No vertebral tenderness Extremity Exam: normal inspection, normal range of motion, pelvis stable Neurologic Exam: alert, oriented x 3, cooperative, braille proofreader II-XII nml as tested Skin Exam: normal color, warm, dry Lymphatic Exam: No adenopathy SpO2 Interpretation: normal Oxygen Delivery: Room Air - Course Nursing assessment & vital signs reviewed: Yes EKG Interpreted by Me: RATE (49), Sinus Rhythm, Sinus Manjit, Left [place] Deviation , Non-specific ST Changes Ordered Tests: Active Orders 24 hr Category Date Time Status Natural Resources Extension Educator STAT Care 07/01/18 04:45 Active EKG-ER Only STAT Care 07/01/18 04:42 Active IV Insertion STAT Care 07/01/18 04:42 Active IV Insertion-2nd Peripheral STAT Care 07/01/18 04:52 Active Oxygen-ED Only NASAL CANNULA 2 lpm Care 07/01/18 04:52 Active Pulse Oximetry (ED) STAT Care 07/01/18 04:42 Active CHEST 1 VIEW (PORTABLE) Stat Exams 07/01/18 05:07 Taken CBC W DIFF Stat Lab 07/01/18 05:35 Completed CMP Stat Lab 07/01/18 05:35 Completed D-DIMER QUANTITATION Stat Lab 07/01/18 05:35 Completed NT PRO BNP Stat Lab 07/01/18 05:35 Completed PROTIME WITH INR Stat Lab 07/01/18 05:35 Completed TROPONIN Q3H Lab 07/01/18 04:45 Completed TROPONIN Q3H Lab 07/01/18 07:45 Ordered TROPONIN Q3H Lab 07/01/18 10:45 Ordered TROPONIN Q3H Lab 07/01/18 13:45 Ordered TROPONIN Q3H Lab 07/01/18 16:45 Ordered Medication Summary Generic Name Dose Route Start Last Admin Trade Name Freq PRN Reason Stop Dose Admin Sodium Chloride 1,000 mls @ 100 mls/hr 07/01/18 04:45 07/01/18 04:55 Sodium Chloride 0.9% 1000 Ml IV 07/31/18 04:44 100 mls/hr .Q10H HUMBERTO Administration Morphine Sulfate 2 mg 07/01/18 07:01 Morphine Sulfate 2 Mg Inj IV 07/01/18 07:02 STAT ONE Lab/Rad Data: Laboratory Result Diagrams 07/01/18 05:35 07/01/18 05:35 Laboratory Results 07/01/18 07/01/18 07/01/18 Range/Units 05:35 05:35 05:35 WBC 8.9 (4.0-10.5) K/mm3 RBC 3.83 L (4.1-5.4) M/mm3 Hgb 11.7 L (12.0-16.0) gm/dl Hct 36.0 (35-47) % MCV 94.0 (78-100) fl MCH 30.5 (26-32) pg MCHC 32.5 (32-36) g/dl RDW 12.3 (11.5-14.0) % Plt Count 276 (150-450) K/mm3 MPV 9.3 (6-9.5) fl Gran % 80.4 H (36.0-66.0) % Eos # (Auto) 0.07 (0-0.5) Absolute Lymphs (auto) 1.03 (1.0-4.6) Absolute Monos (auto) 0.63 (0.0-1.3) Lymphocytes % 11.6 L (24.0-44.0) % Monocytes % 7.1 (0.0-12.0) % Eosinophils % 0.8 (0.00-5.0) % Basophils % 0.1 (0.0-0.4) % Absolute Granulocytes 7.15 H (1.4-6.9) Basophils # 0.01 (0-0.4) PT 12.0 (9.95-12.35) SECONDS INR 1.03 (0.8-3.0) D-Dimer 456 (215-500) ng/mL Sodium 138 (137-145) mmol/L Potassium 4.5 (3.5-5.1) mmol/L Chloride 102 (98-107) mmol/L Carbon Dioxide 25 (22-30) mmol/L Anion Gap 15.0 (5-15) MEQ/L BUN 16 (7-17) mg/dL Creatinine 1.15 H (0.52-1.04) mg/dL Estimated GFR 48.3 ML/MIN Glucose 213 H (74-106) mg/dL Calcium 9.3 (8.4-10.2) mg/dL Total Bilirubin 0.20 (0.2-1.3) mg/dL AST 86 H (14-36) U/L ALT 71 H (0-35) U/L Alkaline Phosphatase 93 (38-126) U/L Troponin I (0.000-0.034) ng/mL NT-Pro-B Natriuret Pep 564 (0-1800) pg/mL Serum Total Protein 6.4 (6.3-8.2) g/dL Albumin 3.6 (3.5-5.0) g/dL 07/01/18 Range/Units 04:45 WBC (4.0-10.5) K/mm3 RBC (4.1-5.4) M/mm3 Hgb (12.0-16.0) gm/dl Hct (35-47) % MCV (78-100) fl MCH (26-32) pg MCHC (32-36) g/dl RDW (11.5-14.0) % Plt Count (150-450) K/mm3 MPV (6-9.5) fl Gran % (36.0-66.0) % Eos # (Auto) (0-0.5) Absolute Lymphs (auto) (1.0-4.6) Absolute Monos (auto) (0.0-1.3) Lymphocytes % (24.0-44.0) % Monocytes % (0.0-12.0) % Eosinophils % (0.00-5.0) % Basophils % (0.0-0.4) % Absolute Granulocytes (1.4-6.9) Basophils # (0-0.4) PT (9.95-12.35) SECONDS INR (0.8-3.0) D-Dimer (215-500) ng/mL Sodium (137-145) mmol/L Potassium (3.5-5.1) mmol/L Chloride (98-107) mmol/L Carbon Dioxide (22-30) mmol/L Anion Gap (5-15) MEQ/L BUN (7-17) mg/dL Creatinine (0.52-1.04) mg/dL Estimated GFR ML/MIN Glucose (74-106) mg/dL Calcium (8.4-10.2) mg/dL Total Bilirubin (0.2-1.3) mg/dL AST (14-36) U/L ALT (0-35) U/L Alkaline Phosphatase (38-126) U/L Troponin I 0.168 H* (0.000-0.034) ng/mL NT-Pro-B Natriuret Pep (0-1800) pg/mL Serum Total Protein (6.3-8.2) g/dL Albumin (3.5-5.0) g/dL - Progress Progress: improved Air Movement: good Progress Note: 07/01/18 05:49 cxr- no acute process 11/23/18 06:[address] bourgeois, master automotive glass technician, at the pt /family request. dr. bourgeois has not returned call back yet. 0640 pts hr increased to 140's then suddenly dropped to asystol for a few seconds. coughing brought back hr. no change in her chest or back pain. i called dr. trujillo, ed doctor at [facility]. i reviewed pt hx, conditon, and work up results. he accepts pt for transfer. pt to be transferred emergently to [place] ED. repeat ekg at 0645 hr 108 left axis deviation. nonspecific st abnormalities. Discussed with Dr.: Other (dr. trujillo ed physician at [facility] ) Counseled pt/family regarding: lab results, diagnosis, need for follow-up, rad results - Departure Time of Disposition: 07:02 Departure Disposition: Transfer Clinical Impression: Chest pain, Elevated troponin level Condition: Fair Critical Care Time: Yes Critical Care Time(excluding separately billable procedures): 30-74 minutes Referrals: FRANCIS VINES [Primary Care Provider] -
[2018-07-01] MEDS ORDERED: Sodium Chloride 0.9% 1000 ML 1,000 ML IV SCH (04:45)
[2018-07-01] MEDS ORDERED: Sodium Chloride 0.9% 1000 ML 1,000 ML ONE (04:54)
[2018-07-01 05:47] LABS: BASOPHIL % 0.1 % (0.0-0.4); Basophil (Absolute #) 0.01 (0-0.4); Eosinophil % 0.8 % (0.00-5.0); Eosinophil (Absolute #) 0.07 (0-0.5); Granulocyte Absolute (ANC) 7.15 (1.4-6.9); Granulocytes % 80.4 % (36.0-66.0); Hemoglobin 11.7 gm/dl (12.0-16.0); Lymphocyte (Absolute #) 1.03 (1.0-4.6); Lymphocytes % 11.6 % (24.0-44.0); Mean Corpuscular Hemoglobin 30.5 pg (26-32); Mean Corpuscular Hgb Concent. 32.5 g/dl (32-36); Mean Platelet Volume 9.3 fl (6-9.5); Monocyte (Absolute #) 0.63 (0.0-1.3); Monocytes % 7.1 % (0.0-12.0); Platelet Count 276 K/mm3 (150-450); Red Blood Count 3.83 M/mm3 (4.1-5.4); Red Cell Distribution Width 12.3 % (11.5-14.0); White Blood Count 8.9 K/mm3 (4.0-10.5)
[2018-07-01 06:04] LABS: INR 1.03 (0.8-3.0)
[2018-07-01 06:08] LABS: ALBUMIN 3.6 g/dL (3.5-5.0); BILIRUBIN,TOTAL 0.2 mg/dL (0.2-1.3); Calcium 9.3 mg/dL (8.4-10.2); Creatinine 1 1.15 mg/dL (0.52-1.04); Potassium 4.5 mmol/L (3.5-5.1); Total Protein 6.4 g/dL (6.3-8.2)
[2018-07-01] MEDS ORDERED: MORPHINE SULFATE 2 MG INJ IV ONE (07:01)
[2018-07-01] MEDS ORDERED: MORPHINE SULFATE 2 MG INJ ONE (07:01)
[2018-07-01 07:11] VITALS: BP 139/80; PULSE 62; O2SAT 96
--- NOTE | 2018-07-01 08:28 | XRAY ---
Indication: Chest pain. Comparison: March 02, 2018. Portable chest again demonstrates normal heart and lungs with incidental left base calcified granuloma. Bony thorax intact again with mild osteopenia and degenerative changes. No new/acute findings.
== END 2018-07-01 07:10 | disposition short-term general hospital (02) ==
LOC: ED 04:26
DX: R07.9 Chest pain, unspecified (principal); R77.8 Other specified abnormalities of plasma proteins; Z79.899 Other long term (current) drug therapy
CPT/HCPCS: 36000; 36415; 71045; 80053; 83880; 84484; 85025; 85379; 85610; 93005; 93041; 96374; 99285; 99291; J2270